=== PATIENT | female | born 1950 | race Caucasian/White ===

== ENCOUNTER 2019-03-20 18:02 | Emergency (ER) | payer MEDICARE ==
[~2019-03-20] VITALS: Ht 165.1 cm; Wt 61.2 kg
[~2019-03-20 18:02] MED LIST: AMITRIPTYLINE H25 MG PO; CLONAZEPAM2 MG PO; RISPERDAL1 MG PO; TRAZODONE HCL150 MG PO; ZOLOFT100 MG PO
[2019-03-20 19:08] LABS: BILIRUBIN,URINE NEGATIVE (NEGATIVE); CLARITY,URINE CLEAR (CLEAR); COLOR,URINE YELLOW (YELLOW); KETONES,URINE NEGATIVE (NEGATIVE); LEUKOCYTE ESTERASE ,URINE MODERATE (NEGATIVE); NITRITE,URINE NEGATIVE (NEGATIVE); PROTEIN,URINE DIPSTICK NEGATIVE (NEGATIVE); URINE UROBILINOGEN 0.2 mg/dL (0.2 - 1)
[2019-03-20 19:25] LABS: BACTERIA,URINE FEW /HPF; EPITHELIAL CELLS,URINE RARE /LPF
[2019-03-20 20:08] VITALS: BP 180/101
== END 2019-03-20 20:22 | disposition home or self-care (01) ==
LOC: ER 18:02
DX: R50.9 Fever, unspecified (principal); R30.0 Dysuria; N39.0 Urinary tract infection, site not specified
CPT/HCPCS: 81001; 87086; 99282